=== PATIENT | female | born 1995 | race Caucasian/White ===

== ENCOUNTER → 2016-04-22 | Outpatient (CLI) | payer BC ==
[~2016-04-22] MED LIST: AMOXICILLIN500 M2 PO; BACTRIM DS 8001 TA1 PO; BIRTH CONTROL1 EAC1 PO; FLEXERIL10 MG PO; HYDROCODONE BIT1 T11 PO; MACROBID100 M1 PO; MOTRIN400 MG PO; MOTRIN800 MG PO; NAPROSYN500 MG PO; TOPAMAX25 MG PO; TYLENOL W/CODEI1 TA2 PO
== END | disposition home or self-care (01) ==
LOC: MRI 02:55
DX: C50.111 Malignant neoplasm of central portion of right female breast (principal); C50.112 Malignant neoplasm of central portion of left female breast

== ENCOUNTER 2016-12-14 19:00 | Emergency (ER) | payer BC ==
[~2016-12-14] VITALS: Ht 172 cm; Wt 68.0 kg
[2016-12-14 19:25] VITALS: BP 140/83
[2016-12-14] MEDS ORDERED: AMOXICILLIN500 M2 PO (20:48)
[2016-12-14] MEDS ORDERED: PREDNISONE20 M1 PO (20:48)
[2016-12-14] MEDS ORDERED: VENTOLIN 02.5 MG/3 M INH (21:38)
== END 2016-12-14 22:14 | disposition home or self-care (01) ==
LOC: ED 19:00
DX: J45.901 Unspecified asthma with (acute) exacerbation (principal); J06.9 Acute upper respiratory infection, unspecified

== ENCOUNTER → 2017-01-04 | Outpatient (CLI) | payer OTHER, BC ==
[~2017-01-04] MED LIST changes: +PREDNISONE20 M1 PO; +VENTOLIN 02.5 MG/3 M INH
== END | disposition home or self-care (01) ==
LOC: LAB 12:39 → RAD 12:39
DX: M54.2 Cervicalgia (principal); M53.82 Other specified dorsopathies, cervical region; V89.2XXA Person injured in unspecified motor-vehicle accident, traffic, initial encounter; Y93.89 Activity, other specified; Y92.89 Other specified places as the place of occurrence of the external cause; Y99.8 Other external cause status

== ENCOUNTER → 2017-05-13 | Outpatient (CLI) | payer BC ==
[2017-05-13 16:18] LABS: BASO # 0.1 10*3/uL (0.0-0.1); BASO % 0.6 % (0.0-1.0); EOS # 0.2 10*3/uL (0.0-0.4); EOS % 2.3 % (1.0-4.0); HEMATOCRIT 37.9 % (37.0-47.0); HEMOGLOBIN 12.6 g/dl (12.0-16.0); LYMPH % 22.4 % (27.0-41.0); MEAN CORPUSCULAR HGB 27.9 pg (27.0-31.0); MEAN CORPUSCULAR HGB CONC 33.2 g/dl (33.0-37.0); MEAN PLATELET VOLUME 11.4 fl (9.6-12.3); MONO % 10.8 % (3.0-9.0); NEUT # 5.7 10*3/uL (2.3-7.9); NEUT % 63.6 % (47.0-73.0); PLATELET COUNT AUTOMATED 332 10*3/uL (130-400); RED BLOOD COUNT 4.51 10*6/uL (4.10-5.10); RED CELL DISTRI WIDTH 13.3 % (0-14.5)
[2017-05-13 16:45] LABS: ALKALINE PHOSPHATASE 98 U/L (45-117); BUN 10 mg/dl (7-24); CHLORIDE 104 mmol/L (98-107); CREATININE 0.72 mg/dL (0.55-1.02); POTASSIUM 4.2 mmol/L (3.5-5.1); SGOT/AST 14 IU/L (3-35); SGPT/ALT 19 U/L (12-78); SODIUM 139 mmol/L (136-145); TOTAL PROTEIN 8.1 gm/dL (6.4-8.2)
== END | disposition home or self-care (01) ==
LOC: LAB 15:46
PROVIDERS: Family Medicine
DX: R51 Headache (principal)

== ENCOUNTER 2017-09-15 20:28 | Emergency (ER) | payer BC ==
[~2017-09-15] VITALS: Ht 160 cm; Wt 79.4 kg
--- NOTE | ~2017-09-15 | EKG ---
[place], [place] ELECTROCARDIOGRAM REPORT NAME: CAT [facility]ALE[facility] UNIT #: [id number] ROOM: DOCTOR: PRAVEEN MAGDALENO MD BIRTHDATE: [birth year] DOS: 09/15/2017 TIME: 2014 hours. Normal sinus rhythm at 76 beats per minute. 1Incomplete right bundle branch block. No previous tracing is available for comparison. PRAVEEN MAGDALENO MD CM:EKGRPT:ELECTROCARDIOGRAM REPORT [id number] PRAVEEN MAGDALENO MD
[2017-09-15 20:28] VITALS: BP 152/84
== END 2017-09-15 20:59 | disposition home or self-care (01) ==
LOC: ED 20:28
DX: R07.89 Other chest pain (principal); Z88.8 Allergy status to other drugs, medicaments and biological substances

== ENCOUNTER 2017-09-25 08:23 | Emergency (ER) | payer BC ==
[~2017-09-25] VITALS: Ht 160 cm; Wt 79.4 kg
[2017-09-25 08:23] VITALS: BP 121/74
[2017-09-25] MEDS ORDERED: ZOLOFT25 MG PO (08:26)
[2017-09-25] MEDS ORDERED: VISTARIL50 MG PO (08:26)
[2017-09-25 08:46] LABS: BILIRUBIN NEGATIVE (NEGATIVE); BLOOD 3+ (NEGATIVE); CLARITY CLOUDY (CLEAR); COLOR YELLOW (YELLOW); GLUCOSE NEGATIVE (NEGATIVE); KETONE NEGATIVE (NEGATIVE); LEUKO ESTERASE NEGATIVE (NEGATIVE); NITRITE NEGATIVE (NEGATIVE); PH 8.5 (5.0-9.0); UROBILINOGEN 0.2 E.U./dl (0.2-1.0)
[2017-09-25 08:52] LABS: BASO % 0.3 % (0.0-1.0); EOS # 0.2 10*3/uL (0.0-0.4); HEMOGLOBIN 13.6 g/dl (12.0-16.0); LYMPH # 0.4 10*3/uL (1.3-4.4); LYMPH % 2.6 % (27.0-41.0); MEAN CELL VOLUME 84.5 fl (81.0-99.0); MEAN CORPUSCULAR HGB 27.4 pg (27.0-31.0); MEAN CORPUSCULAR HGB CONC 32.4 g/dl (33.0-37.0); MEAN PLATELET VOLUME 10.4 fl (9.6-12.3); MONO # 1.1 10*3/uL (0.1-1.0); MONO % 6.8 % (3.0-9.0); NEUT % 88.8 % (47.0-73.0); PLATELET COUNT AUTOMATED 329 10*3/uL (130-400); RED BLOOD COUNT 4.97 10*6/uL (4.10-5.10); RED CELL DISTRI WIDTH 13.6 % (0-14.5); WHITE BLOOD COUNT 15.7 10*3/uL (4.8-10.8)
[2017-09-25 09:03] LABS: BACTERIA TRACE; EPITHELIAL CELLS 16-20; RBC 16-20 rbc/hpf (0-2)
[2017-09-25 09:06] LABS: ALBUMIN 3.9 gm/dl (3.1-4.5); ALKALINE PHOSPHATASE 97 U/L (45-117); BUN 8 mg/dl (7-24); CHLORIDE 109 mmol/L (98-107); CREATININE 0.68 mg/dL (0.55-1.02); POTASSIUM 4.2 mmol/L (3.5-5.1); SGOT/AST 13 IU/L (3-35); SGPT/ALT 22 U/L (12-78); SODIUM 142 mmol/L (136-145); TOTAL PROTEIN 7.8 gm/dL (6.4-8.2)
[2017-09-25 09:09] LABS: BETA-HCG, QUANT < 1.0 mIU/mL (1-3)
[2017-09-25] MEDS ORDERED: PHENERGAN25 M3 PO (12:21)
[2017-09-25] MEDS ORDERED: IMODIUM A-D2 M2 PO (12:21)
== END 2017-09-25 12:46 | disposition home or self-care (01) ==
LOC: ED 08:23
PROVIDERS: Emergency Medicine
DX: K52.9 Noninfective gastroenteritis and colitis, unspecified (principal); Z91.048 Other nonmedicinal substance allergy status; Z79.899 Other long term (current) drug therapy; J45.909 Unspecified asthma, uncomplicated

== ENCOUNTER → 2019-02-16 | Outpatient (CLI) | payer BC ==
[~2019-02-16] MED LIST changes: +IMODIUM A-D2 M2 PO; +PHENERGAN25 M3 PO; +VISTARIL50 MG PO; +ZOLOFT25 MG PO
[2019-02-16 17:28] LABS: BASO # 0.1 10*3/uL (0.0-0.1); BASO % 0.7 % (0.0-1.0); EOS # 0.5 10*3/uL (0.0-0.4); EOS % 4.5 % (1.0-4.0); HEMATOCRIT 38.8 % (37.0-47.0); HEMOGLOBIN 12.4 g/dl (12.0-16.0); LYMPH # 2.6 10*3/uL (1.3-4.4); LYMPH % 25.2 % (27.0-41.0); MEAN CELL VOLUME 86.6 fl (81.0-99.0); MEAN CORPUSCULAR HGB 27.7 pg (27.0-31.0); MEAN PLATELET VOLUME 10.8 fl (9.6-12.3); MONO # 1.1 10*3/uL (0.1-1.0); MONO % 10.1 % (3.0-9.0); NEUT # 6.2 10*3/uL (2.3-7.9); NEUT % 59.3 % (47.0-73.0); PLATELET COUNT AUTOMATED 368 10*3/uL (130-400); RED BLOOD COUNT 4.48 10*6/uL (4.10-5.10); RED CELL DISTRI WIDTH 13.4 % (0-14.5); WHITE BLOOD COUNT 10.4 10*3/uL (4.8-10.8)
[2019-02-16 18:02] LABS: THYROID STIM HORMONE (HS) 1.48 uIU/ml (0.358-4.75)
[2019-02-17 05:09] LABS: DHEA SULFATE 334.5 ug/dL (110.0-431.7); FOLLICLE STIMULATING HORMONE 4.9 mIU/mL (.); PROLACTIN 004465 24.1 ng/mL (4.8-23.3)
[2019-02-18 11:06] LABS: TESTOSTERONE FREE, (DIRECT) 2.8 pg/mL (0.0-4.2)
== END | disposition home or self-care (01) ==
LOC: LAB 17:01
PROVIDERS: Nurse Practitioner Women's Health
DX: N93.9 Abnormal uterine and vaginal bleeding, unspecified (principal); R53.83 Other fatigue

== ENCOUNTER 2019-03-15 13:08 | Emergency (ER) | payer BC ==
[~2019-03-15] VITALS: Ht 162.5 cm; Wt 81.6 kg
[2019-03-15 13:09] VITALS: BP 114/75
[2019-03-15 13:55] LABS: BASO # 0.1 10*3/uL (0.0-0.1); BASO % 0.6 % (0.0-1.0); EOS # 0.3 10*3/uL (0.0-0.4); EOS % 2.2 % (1.0-4.0); HEMATOCRIT 40.9 % (37.0-47.0); MEAN CELL VOLUME 86.7 fl (81.0-99.0); MEAN CORPUSCULAR HGB 27.5 pg (27.0-31.0); MEAN CORPUSCULAR HGB CONC 31.8 g/dl (33.0-37.0); MEAN PLATELET VOLUME 11.1 fl (9.6-12.3); MONO % 8.9 % (3.0-9.0); NEUT # 7.8 10*3/uL (2.3-7.9); NEUT % 70.1 % (47.0-73.0); PLATELET COUNT AUTOMATED 356 10*3/uL (130-400); RED BLOOD COUNT 4.72 10*6/uL (4.10-5.10); RED CELL DISTRI WIDTH 13.2 % (0-14.5); WHITE BLOOD COUNT 11.2 10*3/uL (4.8-10.8)
[2019-03-15 14:10] LABS: ALBUMIN 4.2 gm/dl (3.1-4.5); ALKALINE PHOSPHATASE 103 U/L (45-117); BUN 7 mg/dl (7-24); CHLORIDE 107 mmol/L (98-107); CREATININE 0.73 mg/dL (0.55-1.02); LIPASE 41 U/L (73-393); POTASSIUM 3.8 mmol/L (3.5-5.1); SGOT/AST 17 IU/L (3-35); SGPT/ALT 23 U/L (12-78); SODIUM 138 mmol/L (136-145); TOTAL PROTEIN 8.9 gm/dL (6.4-8.2)
[2019-03-15 15:11] LABS: BILIRUBIN 1+ (NEGATIVE); BLOOD NEGATIVE (NEGATIVE); CLARITY SL CLOUDY (CLEAR); COLOR YELLOW (YELLOW); GLUCOSE NEGATIVE (NEGATIVE); KETONE 2+ (NEGATIVE); LEUKO ESTERASE NEGATIVE (NEGATIVE); NITRITE NEGATIVE (NEGATIVE); SPECIFIC GRAVITY >= 1.030 (1.005-1.030); UROBILINOGEN 0.2 E.U./dl (0.2-1.0)
[2019-03-15 15:27] LABS: BACTERIA 2+
== END 2019-03-15 15:29 | disposition home or self-care (01) ==
LOC: ED 13:08
PROVIDERS: Emergency Medicine
DX: R10.11 Right upper quadrant pain (principal); R10.31 Right lower quadrant pain; R19.7 Diarrhea, unspecified; R63.0 Anorexia; J45.909 Unspecified asthma, uncomplicated; Z87.442 Personal history of urinary calculi; Z79.899 Other long term (current) drug therapy

== ENCOUNTER → 2019-03-16 | Outpatient (CLI) | payer BC | END | disposition home or self-care (01) | LOC: US 09:20 | DX: N93.9 Abnormal uterine and vaginal bleeding, unspecified (principal) ==

== ENCOUNTER 2020-09-25 13:45 | Emergency (ER) | payer BC, OTHER ==
[2020-09-25 13:50] VITALS: BP 121/64
[2020-09-25] MEDS ORDERED: TEMOVATE30 GM T (15:19)
[2020-09-25] MEDS ORDERED: ANTI ITCH T (15:21)
== END 2020-09-25 15:22 | disposition home or self-care (01) ==
LOC: ED 13:45
DX: L25.9 Unspecified contact dermatitis, unspecified cause (principal); J45.901 Unspecified asthma with (acute) exacerbation; Z79.899 Other long term (current) drug therapy; Z88.0 Allergy status to penicillin

== ENCOUNTER → 2024-11-28 | Outpatient (CLI) | payer BC ==
[~2024-11-28] MED LIST changes: +ANTI ITCH T; +TEMOVATE30 GM T
== END ==
LOC: US 13:35
PROVIDERS: ATTEND Nurse Practitioner Women's Health
DX: N63.12 Unspecified lump in the right breast, upper inner quadrant (principal)